=== PATIENT | male | born 1985 | race African-American/Black ===

== ENCOUNTER 2024-05-08 15:39 | Emergency (ER) | payer BC, MEDICAID ==
[~2024-05-08] VITALS: Ht 193 cm; Wt 148.0 kg
[2024-05-08 16:03] VITALS: TEMP 97.8
[2024-05-08] MEDS ORDERED: AMOX-580 PO (17:24)
[2024-05-08] MEDS ORDERED: FLUT16SP2 BOTHNARES (17:24)
[2024-05-08] MEDS ORDERED: CefTRIAXone 1000mg IM Kit (w/lidocaine diluent) IM ONE (17:25)
[2024-05-08 17:37] VITALS: BP 144/76; PULSE 76; O2SAT 97
[2024-05-08] MEDS: dexamethasone sod phosphate 10mg/ml inj IM STA (17:37)
[2024-05-08 17:38] VITALS: RESP 14
[2024-05-08] MEDS: ketorolac trometh 30MG/ML vial 30 MG/ML VIAL IM ONE (17:38)
== END 2024-05-08 17:38 | disposition home or self-care (01) ==
LOC: ER 15:40
DX: J32.8 Other chronic sinusitis (principal); Z20.822 Contact with and (suspected) exposure to COVID-19; Z79.2 Long term (current) use of antibiotics
CPT/HCPCS: 36415; 71045; 87811; 96372; 99284; J1100; J1885